=== PATIENT | female | born 1940 | race Caucasian/White ===

== ENCOUNTER → 2020-09-26 07:33 | Outpatient (CLI) | payer MEDICARE, MEDICAID, SELFPAY ==
--- NOTE | 2020-09-26 | CA_ITS ---
APPROVED REPORT Exam: Pharmacologic Technologist: Elda Fraga Ht: 5 ft 3 in Wt: 159 lbs BSA: 1.75 m2 HR: 66 bpm BP: 149/67 mmHg Indications: Shortness of Air, chest pain Medical History Medications: Aspirin,,,,, Metformin,,,,, Pantoprazole,,,,, Atorvastatin,,,,, Carvedilol,,,,, Glipizide,,,,, Citalopram,,,,, Tramadol,,,,, CloPIdogrel,,,,, Ranolazine,,,,, Stress Test Details Test: LEXISCAN HR Resting HR: 71 bpm Max Heart Rate (APMHR): 143 bpm Max HR Achieved: 101 bpm Target HR (85% APMHR): 121 bpm % of APMHR: 70 Recovery HR: 80 bpm BP Resting BP: 149.0/67.0 mmHg Max BP: 159.0/76.0 mmHg Recovery BP: 152.0/68.0 mmHg ECG Clinical Exercise duration: 04:01 min Highest Stage Achieved: Exercise capacity: 1.0 METs Stress ECG Conclusion Resting EKG: Normal sinus rhythm, NS T wave abnormalities, PAC Symptoms: Shortness of air, malaise, nausea. No chest pain. Arrhythmias/Ectopy: None ST-T Changes: Mild exaggeration of baseline T wave abnormalities. Conclusion: Unremarkable Lexiscan stress. Myoview images reported separately. Electronically signed by : Alvaro Ellis, 09/27/2020 12:41:53
--- NOTE | 2020-09-26 07:33 | NM_ITS ---
APPROVED REPORT Exam: Nuclear Stress Test Indication: Chest pain, SOB, Fatigue, DM, CAD, Family history Patient Location: Outpatient Stress Tech: Elda Fraga NM Tech:Lizzette Nash, ARRT, RT (R)(N) Ht: 5 ft 3 in Wt: 158 lbs Bra Size: B HR: 66 bpm BP: 149/67 mmHg BSA: 1.75 m2 BMI: 27.9 History: Chest pain, SOB, Fatigue, DM, CAD, Family history Procedure: Patient received a 0.4 mg of intravenous Lexiscan, resting heart rate 66 bpm, resting blood pressure 149/67 mmHg, with Lexiscan maximum heart rate achived was 91 bpm which is Less than 85 % of the maximum predicted heart rate and blood pressure was 157/80 mmHg. With Lexiscan, patient denied any complaint of chest pain. Electrocardiogram Resting electrocardiogram showed sinus rhythm nonspecific ST-T changes, with Lexiscan there is less than 1.[address] segment depression noted from the baseline EKG. EKG portion of the Lexiscan is nondiagnostic. Cardiac Stress and Resting SPECT Images: Cardiac Stress and Resting SPECT images were obtained using technetium 99m Myoview 31.6 mCi stress and 10.49 mCi at rest. Gated SPECT for analysis of segmental wall motion and calculation of the ejection fraction also done. Cardiac stress and rest SPECT images show uniform myocardial activity without segmental perfusion abnormality, computer derived ejection fraction is over 65% with no regional wall motion abnormality, right ventricle is mildly enlarged with normal contractility, there appears to be transient ischemic dilatation of the left ventricle raising the concerns for presence of balanced ischemia and multivessel coronary artery disease. Conclusion: 1. The EKG portion of the Lexiscan is nondiagnostic. 2. No scintigraphic evidence of reversible ischemia seen, computer derived ejection fraction is over 65% with no regional wall motion abnormality, there appears to be transient ischemic dilatation of the left ventricle raising the concerns for presence of balanced ischemia and multivessel coronary artery disease. 3. Abnormal Lexiscan Myoview study. Electronically signed by : Alvaro Ellis, 09/27/2020 12:45:35
--- NOTE | 2020-09-26 09:02 | CA_ITS ---
APPROVED REPORT EXAM: Comprehensive 2D, Doppler, and color-flow Echocardiogram Airline Flight Attendant: Nikki Mejia RVT Ht: 5 ft 3 in Wt: 159lbs BSA: 1.75 BP: 137/63 mmHg Indications: CP,FATIGUE,CAD,KELECHI,HERNANDEZ,DM,HTN,HLD 2D Dimensions LVOT 1.45 cm (M/F) 1.5-2.5 M-Mode Dimensions RVDd 2.21 cm (0.9-2.6) LA Diam 3.30 cm (1.9-4.0) LVDd 3.95 cm (3.5-5.7) Ao Diam 2.59 cm (2.0-3.7) LVDs 2.44 cm (3.5-5.7) IVSd 0.80 cm (0.6-1.1) PWd 1.04 cm (0.6-1.1) EF (Teich) 69.10% FS 38.20% EDV (Teich) 67.90 mL ESV (Teich) 21.00 mL LV Diastology E Decel Time 207.00 (160-240 msec) E/A Ratio 1.1 MED E' 6.80 (< 7 cm/sec) E'/MED E' Ratio 14.66 (>14) LAT E' 10.00 (<10 cm/sec) E/LAT E' Ratio 9.97 (>14) Aortic Valve AI PHT 771.00 ms Mitral Valve MV E Max Bj. 100.00 (40-130 cm/s) MV A Velocity 87.00 (40-130 cm/s) E/A Ratio 1.15 MV Decel. Time 207.00 (160-240 ms) MV PHT 61.00 ms Pulmonary Valve PV Peak Velocity 78.00 (50-150 cm/s) Left Ventricle Left atrium is mildly enlarged, left ventricle is normal size, mild concentric left ventricular hypertrophy, visually estimated ejection fraction 55% with no regional wall motion abnormality, grade 1 diastolic dysfunction seen with tissue Doppler evidence of raise left atrial pressure. Right Ventricle Right atrium and right ventricle are normal size and contractility. Aortic Valve Aortic valve is minimally thickened and fibrosed, there is no aortic stenosis or aortic insufficiency. Mitral Valve Mitral valve leaflets are minimally thickened, there is no mitral stenosis, there is mild mitral regurgitation. Tricuspid Valve Tricuspid valve is grossly normal, there is mild tricuspid regurgitation, tricuspid regurgitation jet velocity is inadequate for calculation of the right ventricular systolic pressure. Pulmonic Valve Pulmonic valve is poorly visualized. Great Vessels Aortic root is normal size. Pericardium No significant pericardial effusion noted, there is anterior echo-free space seen. Conclusion 1. Mildly enlarged left atrium, normal left ventricular size, mild concentric left ventricular hypertrophy, visually estimated ejection fraction 55% with no regional wall motion abnormality, grade 1 diastolic dysfunction seen with tissue Doppler evidence of raise left atrial pressure. 2. Mild mitral and tricuspid regurgitation. 3. No significant pericardial effusion noted. Electronically signed by : Alvaro Ellis, 09/27/2020 13:24:21
--- NOTE | 2020-09-26 09:24 | HMH.ITSHM ---
Current Home Medications as stated by this patient Ese Peterson or enrollment eligibility representative. []METFORMIN CELEXA GLIPIZIDE COREG PANTOPRAZOLE CLOPIDOGREL RENEXA TRAMODOL
== END ==
PROVIDERS: PCP Family Medicine; Visit Provider Internal Medicine
DX: E11.9 Type 2 diabetes mellitus without complications (principal); G47.33 Obstructive sleep apnea (adult) (pediatric); I11.9 Hypertensive heart disease without heart failure; I25.10 Atherosclerotic heart disease of native coronary artery without angina pectoris; I77.1 Stricture of artery; R06.00 Dyspnea, unspecified; R06.02 Shortness of breath; R07.9 Chest pain, unspecified; R53.82 Chronic fatigue, unspecified; Z95.5 Presence of coronary angioplasty implant and graft; Z79.84 Long term (current) use of oral hypoglycemic drugs; E78.49 Other hyperlipidemia
CPT/HCPCS: 78452; 93017; 93306; A9502; J2785

== ENCOUNTER 2020-10-08 09:05 | Day surgery (SDC) | payer MEDICARE, MEDICAID, SELFPAY ==
[2020-10-08] VITALS (12 sets, daily range): BP systolic 92–154; BP diastolic 56–78; PULSE 68–77; RESP 12–18; TEMP 36.7; O2SAT 90–98; BMI 28.3
--- NOTE | 2020-10-08 | IR_ITS ---
APPROVED REPORT Patient Location: Outpatient Nursing Instructor: TERRELL Vargas RT (R) PROCEDURES Left heart catheterization Left ventriculogram Selective coronary angiogram INDICATION High risk abnormal Myoview, Known coronary artery disease Informed consent was obtained prior to the procedure. COMPLICATIONS none Estimated Blood Loss: less than 10 mls TECHNIQUE One percent lidocaine used to anesthetize the right anterior aspect of the wrist. The right radial artery was accessed via the Seldinger technique. A 6 Georgian sheath was placed in the right radial artery. 2.5 mg of verapamil, 800 mcg of nitroglycerin, 1mg Lidocaine and 5000 U Heparin were given through the arterial sheath. The trap catheter was also used to perform left heart catheterization, left ventriculogram and selective coronary angiogram. At the end of the procedure the sheath was removed good hemostasis was achieved using Traclet band, patient was transferred to the postop holding area in stable condition. ANGIOGRAPHIC RESULTS The left main artery Normal The left anterior descending artery has a stent in the proximal segment which is widely patent free of in-stent restenosis with excellent proximal distal transitioning. Distal to a very large first diagonal artery is a concentric 30 to 40% tubular smooth stenosis. The remaining LAD is normal. The large first diagonal artery is widely patent and normal The circumflex artery Is nondominant large and normal The right coronary artery Is a large dominant vessel and has proximal tandem eccentric 30% stenoses The CARL ventriculogram reveals Normal 65% The left ventricular end-diastolic pressure 10 mmHg IMPRESSION Widely patent proximal LAD stent as described above Mild to moderate nonflow limiting smooth coronary disease in the mid LAD Mild to moderate tandem nonflow-limiting stenoses in the proximal dominant right coronary Normal ejection fraction Normal left ventricular end-diastolic PLAN 1. Continue medical management Electronically signed by : Kolby Harvey, 10/08/2020 11:29:52
[2020-10-08 09:48] LABS: Chloride 101 mmol/L (98-107)
[2020-10-08 09:49] LABS: Potassium 4.9 mmoL/L (3.5-5.1); Sodium 135 mmol/L (136-145)
[2020-10-08 09:52] LABS: Anion Gap 12.9 mEq/L (5-15); Blood Urea Nitrogen 15 mg/dl (7-17); Calcium 9.6 mg/dl (8.4-10.2); Carbon Dioxide 26 mmol/L (22.0-30.0); Creatinine Clearance Estimated 53 mL/min (50-200); Estimated Glomerular Filt Rate 61 ml/min (>60); GFR (African American) 73 ML/MIN (>60); Glucose 233 mg/dl (74-100)
[2020-10-08 09:58] LABS: Basophils # 0.1 K/mm3 (0-0.2); Basophils % 0.7 % (0.1-2.0); Eosinophils # 0.3 K/mm3 (0.0-0.4); Eosinophils % 3.8 % (0.1-12.0); Hematocrit 39.6 % (37.0-47.0); Hemoglobin 13.3 g/dL (12.2-16.2); Lymphocytes # 2.3 K/mm3 (0.7-4.5); Lymphocytes % 27.2 % (10-50); Mean Corpuscular HGB Conc 33.7 g/dL (31.8-35.4); Mean Corpuscular Hemoglobin 32.6 pg (27.0-31.2); Mean Corpuscular Volume 96.9 fl (81-99); Mean Platelet Volume 8.2 fl (7.4-10.4); Monocytes # 0.5 K/mm3 (0.1-1.0); Monocytes % 5.7 % (1.7-9.3); Neutrophils # 5.3 K/mm3 (1.8-7.8); Neutrophils % 62.6 % (37.0-80.0); Platelet Count 207 K/mm3 (142-424); Red Blood Count 4.09 M/mm3 (4.20-5.40); Red Cell Distribution Width 12.8 % (11.5-17.5); White Blood Count 8.5 K/mm3 (4.8-10.8)
[2020-10-08 10:32] LABS: Coronavirus 19 IgG Antibody Negative (Negative); Coronavirus 19 IgM Antibody Negative (Negative)
== END 2020-10-08 14:27 | disposition home health service (06) ==
LOC: CATHLAB 09:08
PROVIDERS: PCP Family Medicine; Visit Provider Internal Medicine
DX: R94.39 Abnormal result of other cardiovascular function study (principal); I25.118 Atherosclerotic heart disease of native coronary artery with other forms of angina pectoris; E11.9 Type 2 diabetes mellitus without complications; I11.9 Hypertensive heart disease without heart failure; I77.1 Stricture of artery; Z95.5 Presence of coronary angioplasty implant and graft; Z79.01 Long term (current) use of anticoagulants; Z79.82 Long term (current) use of aspirin; G47.33 Obstructive sleep apnea (adult) (pediatric); Z79.899 Other long term (current) drug therapy; Z79.84 Long term (current) use of oral hypoglycemic drugs
CPT/HCPCS: 80048; 85025; 86328; 93458; 99152; C1725; C1769; J1644; Q9967